=== PATIENT | female | born 1950 | race Hispanic/Latino ===

== ENCOUNTER 2017-12-23 06:06 | Day surgery (SDC) | payer MEDICARE ==
[2017-12-23 06:44] VITALS: BMI 39.1
[2017-12-23] MEDS ORDERED: Propofol 10 mg/ml Inj (20 ML) ONE (07:23)
[2017-12-23] MEDS ORDERED: Midazolam 2 MG/2 ML VIAL ONE (07:23)
[2017-12-23] MEDS ORDERED: Rocuronium 10 mg/ml (5 ml) ONE (07:27)
[2017-12-23] MEDS ORDERED: Succinylcholine 200 mg/10 ml Inj IV ONE (07:27)
[2017-12-23] MEDS ORDERED: Phenylephrine 10 mg/ml Inj ONE (07:35)
[2017-12-23] MEDS ORDERED: HYDROmorphone 0.5 mg/0.5 ml ISec IVP PRN (07:42)
[2017-12-23] MEDS ORDERED: Lactated Ringer's 1,000 ML IV SCH (07:45)
[2017-12-23] MEDS ORDERED: Bupivacaine 0.5% 50 ML IJ ONE (07:48)
[2017-12-23] MEDS ORDERED: CeFAZolin 1 gm in NS 100ml IVPB ONE (08:15)
[2017-12-23] MEDS ORDERED: Neostigmine Methylsulfate 3mg/3ml Syringe IV ONE (08:27)
[2017-12-23] MEDS ORDERED: Bupivacaine 0.5% Inj(30mL) IJ ONE (08:50)
[2017-12-23] MEDS ORDERED: Esmolol 100 mg/10ml Inj IV ONE (09:05)
--- NOTE | 2017-12-23 09:42 | PCM.SURG1 ---
Surgeon's Initial Post Op Note - Surgeon's Notes Surgeon: Dr. Obrien [employer] Supervisor: Dr. Munoz PGY4, Dr. Kim PGY1 Type of Anesthesia: General Endo, Local Pre-Operative Diagnosis: incarcerated ventral hernia Operative Findings: incarcerated ventral hernia, 2.5cm defect with omentum hernia contents Post-Operative Diagnosis: same Operation Performed: laparoscopic ventral hernia repair w/ mesh Specimen/Specimens Removed: none Estimated Blood Loss: EBL {In ML}: 10 Blood Products Given: N/A Drains Used: No Drains Post-Op Condition: Good Date of Surgery/Procedure: 12/23/17 Time of Surgery/Procedure: 09:42
[2017-12-23] MEDS: HYDROmorphone 0.5 mg/0.5 ml ISec IVP PRN ×3 (09:50→10:20)
[2017-12-23] MEDS ORDERED: HYDROmorphone 0.5 mg/0.5 ml ISec ONE ×3 (09:51→10:23)
[2017-12-23] MEDS ORDERED: Oxycodone/Acetaminophen 5/325 mg Tab PO PRN (10:36)
[2017-12-23 11:49] VITALS: PULSE 65; RESP 18
[2017-12-23 14:38] VITALS: BP 110/50; TEMP 98; O2SAT 95
--- NOTE | 2017-12-23 22:32 | OP ---
PROCEDURE DATE: 12/23/2017 PREOPERATIVE DIAGNOSIS: Incarcerated umbilical hernia. POSTOPERATIVE DIAGNOSIS: Incarcerated umbilical hernia. PROCEDURE: Laparoscopic repair of the incarcerated umbilical hernia with Symbotex 12-cm mesh. SURGEON: Dr. Don Obrien. RECOVERY OPERATOR HELPER: Dr. Munoz and Dr. Preston. TYPE OF ANESTHESIA: General endotracheal anesthesia. ANESTHESIA ADMINISTERED BY: Dr. Barraza. ESTIMATED BLOOD LOSS: Minimal. SPECIMEN: None. DESCRIPTION OF PROCEDURE: The patient is a 67-year-old female with a history of a large umbilical hernia, which was incarcerated causing her pain and discomfort. The patient was scheduled for the repair. The patient was brought to the operating room and placed on the operative table in supine position. The patient was connected to EKG, blood pressure, and pulse oximetry monitors. The patient then underwent general endotracheal anesthesia, was prepped and draped in the usual sterile fashion. First, standard time-out procedure took place where everybody in the room agreed as to the patient's identity, diagnosis, and procedure to be performed. Using lidocaine with some Marcaine, the area of the left subcostal margin in the anterior axillary line was infiltrated and an incision was made for a 10-mm port, and a 10-mm port was inserted under direct visualization through the visit port with the scope. Once inside the abdominal cavity, carefully a pneumoperitoneum was obtained and reviewed in presence of incarcerated omentum within the umbilical hernia. The remaining portion of the abdomen showed normal with no ascites or bowel adhesions. We then placed 5-mm port in the left lower quadrant and carefully proceeded for pulling out the omentum from the hernia; after a tedious manipulation, we were able to finally empty the hernia sac and detach the omentum from that hernia sac. The hernia sac was then burned in multiple places in order to reduce possibility of a seroma and proceeded with placing a 12-cm Symbotex mesh. We have attached 3-0 Vicryl to it. The mesh was then pulled against the defect giving us about 4- to 5-cm overlap on each side as the defect was about 2 cm to 3 cm in size. The patch was tacked with dissolvable tackers in two rows. There was excellent attachments of the patch to the abdominal wall with a smooth portion towards the bowel. The pneumoperitoneum was now released, trocars removed after checking for bleeding and there was none. The 10-mm trocar site was closed using 0 Vicryl stitch. The wounds were closed using 3-0 Vicryl and 4-0 Monocryl, and sterile Dermabond dressing was applied to all the wounds. A pressure dressing was applied to the umbilical hernia site. The patient tolerated the procedure well, and there were no complications. The patient was awakened and transferred to the recovery room for further observation. Don Obrien MD
== END 2017-12-23 14:30 | disposition home or self-care (01) ==
LOC: SDS 06:06
PROVIDERS: ATTEND General Practice
DX: K42.0 Umbilical hernia with obstruction, without gangrene (principal); K43.6 Other and unspecified ventral hernia with obstruction, without gangrene
CPT/HCPCS: 49653; C1781; J0330; J0690; J1100; J1170; J2001; J2250; J2370; J2405; J2704; J2710; J2765; J3010; J7120 ×2

== ENCOUNTER 2018-04-07 09:15 | Outpatient (CLI) | payer MEDICARE | END 2018-04-07 09:16 | disposition home or self-care (01) | LOC: RAD 09:15 | DX: R10.13 Epigastric pain (principal) ==